=== PATIENT | male | born 1960 | race Caucasian/White ===

== ENCOUNTER → 2016-09-16 | Outpatient (CLI) | payer OTHER ==
[~2016-09-16] MED LIST: ALBU18HF IH; DIAZ-90 PO; DICL75TA2 PO; DICY20TA59 PO; ESCI10TA PO; FAMO40TA52 PO; HYDR-3498 PO; LORA1TAB PO; LTH150C PO; MIN1 PO; MOME13HF IH; MORP-58 PO; ONDA4TAB35 PO; PANT40TA4 PO; PROC10TA10 PO; QUET400T11 PO; TEMA30CA6 PO
--- NOTE | 2016-09-16 15:27 | RADRPT ---
PROCEDURE: XR pelvis/right hip. CLINICAL INDICATION: Hip pain TECHNIQUE: AP pelvis/AP and lateral right hip views available for review. 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 There is no evidence of loosening of the prosthe sis. There is diffuse osteopenia. No fractures are identified. No osseous lesions are present. Th ere is mild left hip osteoarthrosis. The soft tissues are unremarkable. IMPRESSION: Diffuse osteopenia. Constrained right total hip replacement Mild left hip osteoarthrosis Otherwise an unremarkable examination RPTAT: [facility] .Timmy Cevallos MD, MD Date Time Electronically viewed and signed by .Timmy Cevallos MD, on 09/16/2016 15:27 .B/
--- NOTE | 2016-09-16 20:45 | HKNOTE ---
DATE OF SERVICE: 09/16/2016 MAIN COMPLAINT: Pain in the right hip. HISTORY OF MAIN COMPLAINT: The patient is a 55-year-old male who has undergone 5 surgeries to his r ight hip. The first surgery was for a fracture of the hip. Subsequently, he needed 4 revisions. H is surgeon has advised him to have a further revision of the hip on account of ongoing pain. He is referred for an evaluation of the hip. It is difficult to know what the 4 different operations were. The patient did have recurrent disloc ation of his hip and the x-ray showed that he does have a constrained liner which should theoretical ly prevent him from getting any further dislocations. PRESENT COMPLAINTS: The pain in his right hip is localized to the buttock and radiates to the right buttocks and radiates to his back. He does not have any groin pain. Pain is aggravated by walking , weightbearing and stair climbing. He sometimes gets rest pain. He takes Rhodes. Dilaudid and Ser oquel for the pain. He also takes morphine injections for the pain. He has a long history of problems with his lower back. He has been diagnosed as having " an L4 disk ." He has had epidural injections. On a level surface, he can walk about 5 blocks at a time. He sometimes uses a cane, but mostly he w alks without a cane. He has a slight limp all of the time. He does not have a shoe lift, but his r ight leg feels shorter than the left leg. He can put on his shoes and socks and clip his toenails. PAST ORTHOPEDIC HISTORY: Previous orthopedic operations as noted above. PRIOR CORTISONE INTAKE: The patient had multiple injections of cortisone in the past. ALCOHOL INTAKE: None. BLOOD TESTS FOR ARTHRITIS: None. PRIOR INJURIES TO HIPS OR KNEES: The patient fell from a ladder in 2003 and fractured his right hip . WORK STATUS: The patient is disabled. PAST MEDICAL HISTORY: 1. COPD. 2. Arthritis. PAST SURGICAL HISTORY: 1. Five hip surgeries. 2. Appendectomy. MEDICATION ALLERGIES: NONE. MEDICATIONS: See attached long list of medications. FAMILY HISTORY: Noncontributory. SYSTEMS REVIEW: Age related failing vision, gait disturbance, difficulty breathing at times. Histo ry of pneumonia. HABITS: The patient smoked a pack of cigarettes a day for 30 years. 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 PHYSICAL EXAMINATION GENERAL: The patient is a fit-looking 55-year-old male. VITAL SIGNS: Height 5 feet 9 inches, weight 165 pounds. Blood pressure 115/60, temperature 98.2. GAIT: The patient walks without a cane or any other assistive device. His gait is normal (most imp ortantly, he has a negative Trendelenburg gait). BACK: Dynamic pain assessment reveals a pain free range of motion in flexion, extension, lateral be nding, and rotation. Inspection of the spine reveals no list. There is @@no lumbar paraspinal muscle spasm. The pelvis is level. Facet stress test is negative bilaterally. Palpation of the spine demon strates no tenderness of the spinous processes, facet joints, sacroiliac joint, sciatic notch, or po sterior thigh. NEUROLOGIC: Motor examination reveals no muscle deficit in the lower extremities. Deep tendon refle xes in the lower extremities: Right knee jerk +, left knee jerk +, right ankle jerk +, left ankle j erk +. Straight leg raising is negative bilaterally at 80 degrees. Lasegue and FAUZIA tests are negat tamie. HIP: Examination of the right hip, a full range of motion without pain. There is no external sign of infection. The scar of the prior surgeries have healed well. RIGHT KNEE: The right knee shows normal alignment. Active and passive extension is 0 degrees. Activ e and passive flexion is 135 degrees. The medial and lateral collateral ligaments and cruciate ligam ents are intact. Jesus Manuel test is negative. There is no effusion, tenderness, scarring, crepitus, or cysts. The patella tracks normally. There is no tenderness on the articular surface of the patella o r in the patellar groove. The Q angle is normal. LEFT KNEE: The left knee shows normal alignment. Active and passive extension is 0 degrees. Active and passive flexion is 135 degrees. The medial and lateral collateral ligaments and cruciate ligamen ts are intact. Jesus Manuel test is negative. There is no effusion, tenderness, scarring, crepitus, or cy sts. The patella tracks normally. There is no tenderness on the articular surface of the patella or in the patellar groove. The Q angle is normal. IMAGING: Plain x-rays of his pelvis and hips obtained today show that he has a revision stem, shows that he has had prior right total hip replacements. He currently has a constrained acetabular sock et. The locking reamer is firmly in place. The femoral and acetabular components appear to be well attached to the bone without evidence of loosening or any other problem. There is a loose cerclage wire in the tissues superior to the acetabulum. DISCUSSION: Mr. Marc Figueroa is an unfortunate 55-year-old male in that he has had 5 surgeries to his right hip. His orthopedic surgeon has recommended a further operation to the hip (we do not know what that oper ation is). The patient is advised that on the basis of my evaluation his pain is not coming from his right hip but is coming from his lumbar spine. He needs to have a complete evaluation of his lumbar spine including an MRI scan of the lumbar spine and then be referred to a nurse specialist or painter railroad car for managing that problem. I strongly recommend against any further surgeries to the right hip. Dictated By: OCTAVIA LANGFORD/CABRERA Conf#: [id number] DID#: [id number]
== END | disposition home or self-care (01) ==
LOC: HKI 14:43
DX: M54.5 Low back pain (principal); M25.551 Pain in right hip; Z96.641 Presence of right artificial hip joint
CPT/HCPCS: 73502; Z7500; G0463